=== PATIENT | male | born 1990 | race Two or more races ===

== ENCOUNTER 2023-06-07 10:15 | Emergency (ER) | payer OTHER ==
[~2023-06-07] VITALS: Ht 167.6 cm; Wt 69.4 kg
[2023-06-07 11:39] LABS: HEMATOCRIT 45.7 % (39.0-48.0); HEMOGLOBIN 15.7 g/dL (13-16.00); MEAN CELL VOLUME 86.7 fL (80.0-100.00); MEAN CORPUSCULAR HEMOGLOBIN 29.8 pg (27.00-32.0); MEAN CORPUSCULAR HGB CONC 34.4 g/dl (32.0-36.0); PLATELET COUNT 273 K/uL (150-450); RED BLOOD COUNT 5.28 M/uL (4.00-6.00); RED CELL DISTRIBUTION WIDTH 13.1 % (11.5-14.5)
[2023-06-07 12:14] LABS: CALCIUM 9.9 mg/dL (8.5-10.1); CREATININE SERUM 1.03 mg/dL (0.70-1.30); GFR 83.69; POTASSIUM 3.74 mEq/L (3.5-5.1)
[2023-06-07 12:23] LABS: URINE APPEARANCE Clear; URINE BILIRRUBIN Negative (NEGATIVE); URINE BLOOD Trace; URINE COLOR Yellow; URINE GLUCOSE Negative (NEGATIVE); URINE LEUKOCYTE Negative; URINE NITRATE Negative; URINE PROTEIN Negative (NEGATIVE); URINE UROBILINOGEN 0.2 E.U./dl
[2023-06-07 12:30] LABS: URINE RBC 22.8 uL (0.0-20.8)
[2023-06-07 12:40] LABS: URINE WBC 1.3 uL (0.0-23.2)
== END 2023-06-07 14:15 | disposition home or self-care (01) ==
LOC: ER 10:15
PROVIDERS: General Practice
DX: K21.00 Gastro-esophageal reflux disease with esophagitis, without bleeding (principal); R10.9 Unspecified abdominal pain; N20.0 Calculus of kidney